=== PATIENT | male | born 1955 | race Caucasian/White ===

== ENCOUNTER 2016-09-18 14:59 | Emergency (ER) | payer MEDICARE, OTHER ==
[~2016-09-18] VITALS: Ht 185.4 cm; Wt 95.5 kg
[2016-09-18 15:04] VITALS: BP 112/64; PULSE 80; RESP 16; O2SAT 98
[2016-09-18 15:44] LABS: BASOPHILS % (AUTO) 0.3 % (0-3); EOSINOPHILS % (AUTO) 0.7 % (0-5); Platelet Count 90 bil/L (150-400)
[2016-09-18 15:47] LABS: MONOCYTES % (AUTO) 7.5 % (4-12); Mean Corpuscular Hemoglobin 32.3 pg (27.0-35.0); NEUTROPHILS % (AUTO) 65.6 % (40-74)
--- NOTE | 2016-09-18 15:58 | DRSVH ---
PROCEDURE: X-RAY CHEST ONE VIEW, PORTABLE ([id number]) INDICATIONS: Chest pain TECHNIQUE: One view of the chest was acquired. COMPARISON: None. FINDINGS: Surgical changes and devices: There is a left chest wall AICD with leads projecting over the right at rium, right ventricle, and coronary sinus. Lungs and pleura: No pleural effusions or pneumothorax. Evaluation of the limited by rotation. Vis ualized lungs are grossly clear. Mediastinum: Mediastinal contours appear within normal limits. Heart size is normal. Bones and chest wall: No suspicious bony lesions. Overlying soft tissues appear unremarkable. IMPRESSION: 1. No definite acute cardiopulmonary disease. Dictated by: Shane Nice M.D. on 09/18/2016 at 15:42 Approved by: Shane Nice M.D. on 09/18/2016 at 15:57
[2016-09-18] MEDS ORDERED: CARV6.252 PO (16:04)
[2016-09-18 16:21] LABS: TROPONIN T < 0.010 ug/L (0.0-0.011)
[2016-09-18 16:29] LABS: Magnesium 1.8 mg/dL (1.6-2.6)
[2016-09-18] MEDS ORDERED: LISI-571 PO (16:34)
[2016-09-18] MEDS ORDERED: OMEP20CA11 PO (16:34)
[2016-09-18] MEDS ORDERED: LIP40 PO (16:34)
[2016-09-18] MEDS ORDERED: RIVA20TA PO (16:34)
[2016-09-18] MEDS ORDERED: AMIO200T PO (16:34)
[2016-09-18] MEDS ORDERED: MELA5TAB14 PO (16:34)
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
== END 2016-09-18 17:45 | disposition left against medical advice (07) ==
LOC: SED 14:59
DX: F10.10 Alcohol abuse, uncomplicated (principal); I10 Essential (primary) hypertension; Z95.0 Presence of cardiac pacemaker; Z59.0 Homelessness